=== PATIENT | male | born 1980 | race Caucasian/White ===

== ENCOUNTER 2019-11-24 17:25 | Emergency (ER) | payer BC ==
[~2019-11-24] VITALS: Ht 182.9 cm; Wt 131.0 kg
[2019-11-24 17:58] LABS: BASO # 0.1 x10^3/uL (0.0-0.2); BASO % 1 % (0-3); EOS # 0.1 x10^3/uL (0.0-0.7); EOS % 1 % (0-3); HEMATOCRIT 42.8 % (39.0-53.0); HEMOGLOBIN 14.6 g/dL (13.0-17.5); LYMPH # 3.7 x10^3/uL (1.0-4.8); LYMPH % 27 % (24-48); MEAN CORPUSCULAR HEMOGLOBIN 31 pg (25-35); MEAN CORPUSCULAR HGB CONC 34 g/dL (31-37); MEAN CORPUSCULAR VOLUME 90 fL (79-100); MONO # 0.8 x10^3/uL (0.0-1.1); MONO % 6 % (0-9); NEUT # 9.2 x10^3uL (1.8-7.7); NEUT % 66 % (31-73); PLATELET COUNT 307 x10^3/uL (140-400); RED BLOOD COUNT 4.78 x10^6/uL (4.30-5.70); RED CELL DISTRIBUTION WIDTH 13.4 % (11.5-14.5); WHITE BLOOD COUNT 13.9 x10^3/uL (4.0-11.0)
[2019-11-24 18:02] LABS: CALCIUM 9.1 mg/dL (8.5-10.1); CREATININE 1.3 mg/dL (0.7-1.3); GFR 60.8; POTASSIUM 3.3 mmol/L (3.5-5.1)
[2019-11-24] MEDS: IV NORMAL SALINE 1,000ML 1,000 ML IV ONE (18:04)
[2019-11-24 18:10] LABS: ALBUMIN 4.4 g/dL (3.4-5.0); ALBUMIN/GLOBULIN RATIO 1.4 (1.0-1.7); TOTAL BILIRUBIN 1.2 mg/dL (0.2-1.0); TOTAL PROTEIN 7.5 g/dL (6.4-8.2)
[2019-11-24 19:07] VITALS: BP 131/72
--- NOTE | 2019-11-24 19:14 | PHYS DOC ---
Past History Past Medical History: Hypertension Past Surgical History: No Surgical History Alcohol Use: Occasionally Drug Use: None General Adult EDM: Chief Complaint: RECTAL BLEED HPI: HPI: Patient is a 39 year old male who presents with complaints of blood in his stool that started today. Patient states that he has had 9-10 bouts of blood in his stool. Patient describes the blood as bright red. Patient denies any abdominal pains. Patient denies rectal pain. Patient denies any anal sex or any objects penetrating his rectum. Patient states that he was having some epigastric pains over the past week because he has been eating a large amount of spicy foods. Patient states however this pain had resolved with taking Tums, and has not had any pain for the past couple of days. Patient denies any recent fever or chills, patient denies cough congestion, denies chest pain or swelling of his extremities. Patient denies any urinary problems, denies penile discharge. Patient denies any nausea or vomiting or diarrhea. However patient does state that when he has stool that is blood-streaked today. Patient denies any increased urination and denies increased thirst. Patient denies any recent anxiety, depressions, homicidal or suicidal ideations. Review of Systems: Review of Systems: Constitutional: Denies fever or chills Eyes: Denies change in visual acuity HENT: Denies nasal congestion or sore throat Respiratory: Denies cough or shortness of breath Cardiovascular: Denies chest pain or edema GI: Denies abdominal pain, nausea, vomiting, diarrhea, however patient complains of blood in his stools x9-10 times today. Patient describes the blood is bright red blood. Patient denies dark tarry stools. Patient denies black stools. : Denies dysuria Musculoskeletal: Denies back pain or joint pain Integument: Denies rash Neurologic: Denies headache, focal weakness or sensory changes Endocrine: Denies polyuria or polydipsia Lymphatic: Denies swollen glands Psychiatric: Denies depression or anxiety denies homicidal suicidal ideation. Heart Score: Risk Factors: Risk Factors: DM, Current or recent (<one month) smoker, HTN, HLP, family history of CAD, obesity. Risk Scores: Score 0 - 3: 2.5% MACE over next 6 weeks - Discharge Home Score 4 - 6: 20.3% MACE over next 6 weeks - Admit for Clinical Observation Score 7 - 10: 72.7% MACE over next 6 weeks - Early Invasive Strategies Family History: Family History: Patient denies any family history significant to this ER visit today. Current Medications: Current Meds: Current Medications Medications (Trade) Dose Ordered Sig/Babs Start Time Stop Time Status Last Admin Dose Admin Sodium Chloride 1,000 ml @ 1,000 mls/hr 1X ONCE 11/24/19 18:00 11/24/19 18:59 DC 11/24/19 18:04 1,000 MLS/HR Allergies: Allergies: Allergies Coded Allergies Type Severity Reaction Last Updated Verified No Known Drug Allergies 05/29/15 No Physical Exam: PE: Constitutional: Well developed, well nourished, no acute distress, non-toxic appearance. [] HENT: Normocephalic, atraumatic, bilateral external ears normal, oropharynx moist, no oral exudates, nose normal. [] Eyes: PERRLA, EOMI, conjunctiva normal, no discharge. [] Neck: Normal range of motion, no tenderness, supple, no stridor. [] Cardiovascular:Heart rate regular rhythm, no murmur [] Lungs & Thorax: Bilateral breath sounds clear to auscultation [] Abdomen: Bowel sounds normal, soft, no tenderness, no masses, no pulsatile masses. Patient is rectal exam externally showed no hemorrhoids or discrepancies, there was no redness, or external bleeding noted. Digital rectal exam noted normal size prostate, digital exam also consistent with internal he morrhoid at 9 o'clock position. There was blood on gloved finger after exam. A occult stool was not performed. Patient did not have any bleeding after digital rectal exam. Skin: Warm, dry, no erythema, no rash. [] Back: No tenderness, no CVA tenderness. [] Extremities: No tenderness, no cyanosis, no clubbing, ROM intact, no edema. [] Neurologic: Alert and oriented X 3, normal motor function, normal sensory function, no focal deficits noted. [] Psychologic: Affect normal, judgement normal, mood normal. [] Current Patient Data: Labs: Laboratory Tests Test 11/24/19 17:40 White Blood Count 13.9 x10^3/uL (4.0-11.0) H Red Blood Count 4.78 x10^6/uL (4.30-5.70) Hemoglobin 14.6 g/dL (13.0-17.5) Hematocrit 42.8 % (39.0-53.0) Mean Corpuscular Volume 90 fL (79-100) Mean Corpuscular Hemoglobin 31 pg (25-35) Mean Corpuscular Hemoglobin Concent 34 g/dL (31-37) Red Cell Distribution Width 13.4 % (11.5-14.5) Platelet Count 307 x10^3/uL (140-400) Neutrophils (%) (Auto) 66 % (31-73) Lymphocytes (%) (Auto) 27 % (24-48) Monocytes (%) (Auto) 6 % (0-9) Eosinophils (%) (Auto) 1 % (0-3) Basophils (%) (Auto) 1 % (0-3) Neutrophils # (Auto) 9.2 x10^3uL (1.8-7.7) H Lymphocytes # (Auto) 3.7 x10^3/uL (1.0-4.8) Monocytes # (Auto) 0.8 x10^3/uL (0.0-1.1) Eosinophils # (Auto) 0.1 x10^3/uL (0.0-0.7) Basophils # (Auto) 0.1 x10^3/uL (0.0-0.2) Sodium Level 139 mmol/L (136-145) Potassium Level 3.3 mmol/L (3.5-5.1) L Chloride Level 103 mmol/L (98-107) Carbon Dioxide Level 26 mmol/L (21-32) Anion Gap 10 (6-14) Blood Urea Nitrogen 13 mg/dL (8-26) Creatinine 1.3 mg/dL (0.7-1.3) Estimated GFR (Cockcroft-Gault) 60.8 BUN/Creatinine Ratio 10 (6-20) Glucose Level 127 mg/dL (70-99) H Calcium Level 9.1 mg/dL (8.5-10.1) Total Bilirubin 1.2 mg/dL (0.2-1.0) H Aspartate Amino Transferase (AST) 30 U/L (15-37) Alanine Aminotransferase (ALT) 70 U/L (16-63) H Alkaline Phosphatase 71 U/L (46-116) Total Protein 7.5 g/dL (6.4-8.2) Albumin 4.4 g/dL (3.4-5.0) Albumin/Globulin Ratio 1.4 (1.0-1.7) Vital Signs: Vital Signs Date Time Temp Pulse Resp B/P (MAP) Pulse Ox O2 Delivery O2 Flow Rate FiO2 11/24/19 17:35 98.2 96 20 133/86 (102) 97 Room Air EKG: EKG: [] Radiology/Procedures: Radiology/Procedures: [] Course & Med Decision Making: Course & Med Decision Making Pertinent Labs and Imaging studies reviewed. (See chart for details) 39-year-old male patient with complaints of rectal bleeding, stating he had approximately 9-10 bouts of bright red bleeding, he is unsure exactly how much he bled. Patient denies any abdominal pain or discomfort. Patient denies any aches or pains or fever or chills. Labs were drawn, results are equivocal no signs of anemia noted, no signs of infectious process noted. Patient's rectal exam was negative for external trauma. However there was blood on the gloved finger after the digital exam. Offered to CAT scan patient patient states that he has no pain, he was confident that he may does have an internal hemorrhoid, patient states that he does not need a CAT scan at this time. Patient states that he would return to the emergency department if there was continual rectal bleeding and/or he experienced any abdominal and/or rectal pain at any time. It is of my opinion that the patient is able to make sound educated medical decisions. I feel comfortable discharging patient to home for self-care. Patient states that he would follow-up with his primary care physician on Wednesday unless he experienced any pain or discomfort or increased bleeding or concerns he would return to the emergency department immediately. Patient gave verbal understanding of home care instructions return to ER concerns, no prescriptions were given. Patient discharged home without incident. Dragon Disclaimer: Dragon Disclaimer: This electronic medical record was generated, in whole or in part, using a voice recognition dictation system. Departure Departure: Impression: Primary Impression: Internal hemorrhoid, bleeding Additional Impression: Blood in the stool Disposition: 01 DC HOME SELF CARE/HOMELESS Condition: GOOD Referrals: PCP,NO (PCP) Patient Instructions: Hemorrhoids Additional Instructions: Follow-up with your doctor soon, refrain from nonsteroidal anti-inflammatories such as Motrin and/or Naprosyn and/or ibuprofen until bleeding subsides. Return to the emergency department for worsening symptoms. We discussed a CAT scan of the abdomen, will defer at this time. CONSTANTINO RUIZ APRN Nov 24, 2019 19:14
== END 2019-11-24 19:24 | disposition home or self-care (01) ==
LOC: ER 17:25
DX: K64.8 Other hemorrhoids (principal); K92.1 Melena; I10 Essential (primary) hypertension
CPT/HCPCS: 36415; 80053; 85025; 96360; 99283; J7030